=== PATIENT | female | born 1990 | race Caucasian/White ===

== ENCOUNTER 2024-12-17 03:21 | Emergency (ER) | payer SELFPAY ==
[2024-12-17] MEDS ORDERED: Sodium Chloride 0.9% 10 ML Syringe FLUSH PRN (03:53)
[2024-12-17] MEDS: Diphtheria,Pertussis(Acell),Tetanus Vaccine 0.5 ML Syringe IM ONE (03:58)
[2024-12-17 04:55] LABS: BASOPHILS ABSOLUTE AUTO 0.0 K/mm3 (0.0-0.2); BASOPHILS PERCENT AUTO 0.2 % (0.0-1.0); EOSINOPHILS ABSOLUTE AUTO 0.0 K/mm3 (0.0-0.4); EOSINOPHILS PERCENT AUTO 0.1 % (0.0-6.0); IMMATURE GRAN ABSOLUTE AUTO 0.07 K/mm3 (0.00-0.05); IMMATURE GRAN PERCENT AUTO 0.4 % (0.0-0.4); LYMPHOCYTES ABSOLUTE AUTO 2.0 K/mm3 (1.0-4.8); LYMPHOCYTES PERCENT AUTO 12.8 % (24.0-44.0); MEAN PLATELET VOLUME 10.2 fl (9.4-12.3); MONOCYTES ABSOLUTE AUTO 1.5 K/mm3 (0.0-0.8); MONOCYTES PERCENT AUTO 9.3 % (0.0-8.0); NEUTROPHILS ABSOLUTE AUTO 12.2 K/mm3 (1.8-7.7); NEUTROPHILS PERCENT AUTO 77.2 % (41.0-71.0); NRBC ABSOLUTE 0.00 (0.00-0.02); NRBC PERCENT 0.0 % (0.0-0.2); PLATELET COUNT,PLT 264 K/mm3 (150-400); RED BLOOD CELL COUNT 4.80 M/mm3 (4.10-5.30); WHITE BLOOD CELL COUNT,WBC 15.78 K/mm3 (3.9-11.3)
[2024-12-17 05:39] LABS: A/G RATIO 1.1 (1-2); ALANINE AMINOTRANSFERASE,ALT 20.0 U/L (14-59); ASPARTATE AMNIOTRANSFERASE,AST 21.0 U/L (15-37); BILIRUBIN TOTAL 1.2 mg/dL (0.2-1.0); BLOOD UREA NITROGEN,BUN 10.0 mg/dL (7-18); CARBON DIOXIDE,CO2 24.0 mEq/L (21-32); CHLORIDE,CL 102.0 mEq/L (98-107); CREATININE 0.6 mg/dL (0.55-1.02); EST CRCL DRUG DOSING (CG) 111.35 mL/min; ESTIMATED GFR 122.0 mL/min (>60); GLUCOSE RANDOM 82.0 mg/dL (70-99); POTASSIUM,K 4.1 mEq/L (3.5-5.1); PROTEIN TOTAL,TP 8.0 g/dl (6.4-8.2); SODIUM,NA 137.0 mEq/L (136-145); TSH 1.281 uIU/mL (0.358-3.74)
[2024-12-17 05:44] LABS: ETHANOL BLOOD MEDICAL 0.0 gm% (0.00)
[2024-12-17 09:43] LABS: APPEARANCE,URINE CLEAR (Clear); GLUCOSE,URINE NEGATIVE (Negative); OCCULT BLOOD,URINE 1+ (Negative)
[2024-12-17 09:55] LABS: BUPRENORPHINE SCREEN,URINE PRESUMPTIVE POSITIVE (CUTOFF=10); METHADONE SCREEN, URINE NEGATIVE (CUTOFF=200); METHAMPHETAMINES SCREEN, URINE NEGATIVE (CUTOFF=500); OXYCODONE SCREEN,URINE NEGATIVE (CUT0FF=100); THC SCREEN,URINE 20 NG/ML PRESUMPTIVE POSITIVE (CUTOFF=50)
[2024-12-17 10:09] LABS: AMPHETAMINES SCREEN, URINE NEGATIVE (CUTOFF=500)
[2024-12-17] MEDS: cefTRIAXone 1 GM, Lidocaine 1% 2.1 ML IM ONE (14:04)
== END 2024-12-17 15:40 ==
LOC: JD.ED 03:21
DX: S71.111A Laceration without foreign body, right thigh, initial encounter (principal); S61.411A Laceration without foreign body of right hand, initial encounter; S91.115A Laceration without foreign body of left lesser toe(s) without damage to nail, initial encounter; S31.811A Laceration without foreign body of right buttock, initial encounter; F31.12 Bipolar disorder, current episode manic without psychotic features, moderate; F10.20 Alcohol dependence, uncomplicated; N39.0 Urinary tract infection, site not specified; Z88.5 Allergy status to narcotic agent; W25.XXXA Contact with sharp glass, initial encounter
CPT/HCPCS: 12004; 36415; 70450; 71045; 72125; 73060; 73070; 73090; 80053; 80143; 80179; 80306; 80307; 81001; 82140; 83690; 83735; 84443; 84703; 85025; 87086; 90471; 90715; 93005; 96372; 99285; A9270; J0696; J2003; J7030